=== PATIENT | male | born 1940 | race Hispanic/Latino ===

== ENCOUNTER 2021-03-26 10:01 | Outpatient (RCR) | payer MEDICARE ==
[2021-03-26] MEDS ORDERED: LIDOCAINE/PRILOCAINE 2.5-2.5% KIT ONE (12:40)
== END 2021-04-15 ==
LOC: WCC 10:01
PROVIDERS: ATTEND Family Medicine
DX: L89.92 Pressure ulcer of unspecified site, stage 2 (principal); E11.40 Type 2 diabetes mellitus with diabetic neuropathy, unspecified; E11.65 Type 2 diabetes mellitus with hyperglycemia; G90.09 Other idiopathic peripheral autonomic neuropathy; I10 Essential (primary) hypertension; E78.01 Familial hypercholesterolemia; Y79.2 Prosthetic and other implants, materials and accessory orthopedic devices associated with adverse incidents

== ENCOUNTER 2021-04-16 11:18 | Outpatient (RCR) | payer MEDICARE ==
[2021-04-16] MEDS ORDERED: LIDOCAINE VISC 2% SOLN 15 ML UDC ONE (16:37)
== END 2021-05-16 ==
LOC: WCC 11:18
PROVIDERS: ATTEND Family Medicine
DX: L89.92 Pressure ulcer of unspecified site, stage 2 (principal); Z89.511 Acquired absence of right leg below knee
CPT/HCPCS: 87071; 87075; 87205